=== PATIENT | female | born 1995 | race American Indian/Alaskan Native ===

== ENCOUNTER 2019-04-12 12:46 | Outpatient (CLI) | payer OTHER | END 2019-04-12 13:03 | disposition home or self-care (01) | LOC: NST 12:46 | DX: Z34.83 Encounter for supervision of other normal pregnancy, third trimester (principal) ==

== ENCOUNTER 2019-04-18 10:33 | Outpatient (CLI) | payer OTHER | END 2019-04-18 11:07 | disposition home or self-care (01) | LOC: NST 10:33 | DX: Z34.83 Encounter for supervision of other normal pregnancy, third trimester (principal) ==

== ENCOUNTER 2019-04-25 12:32 | Inpatient (IN) | payer OTHER ==
[~2019-04-25] VITALS: Ht 165.1 cm; Wt 70.3 kg
[2019-05-24] MEDS ORDERED: PRENATAL CAPLE1 EAC1 PO (14:17)
== END 2019-05-26 11:52 | disposition home or self-care (01) | DRG 806 ==
LOC: OB/GYN 05-21 10:00 → LDR 05-24 13:19 → OB/GYN 05-24 22:19
PROVIDERS: ADMIT Obstetrics & Gynecology
PROC: 10D17Z9 Manual Extraction of Products of Conception, Retained, Via Natural or Artificial Opening (ICD-10-PCS; 2019-05-24)
PROC: 3E0P7VZ Introduction of Hormone into Female Reproductive, Via Natural or Artificial Opening (ICD-10-PCS; 2019-05-24)
PROC: 3E033VJ Introduction of Other Hormone into Peripheral Vein, Percutaneous Approach (ICD-10-PCS; 2019-05-24)
PROC: 4A1HXCZ Monitoring of Products of Conception, Cardiac Rate, External Approach (ICD-10-PCS; 2019-05-24)
PROC: 10E0XZZ Delivery of Products of Conception, External Approach (ICD-10-PCS; principal; 2019-05-24 21:00)
DX: O71.4 Obstetric high vaginal laceration alone (principal); O72.2 Delayed and secondary postpartum hemorrhage; Z37.0 Single live birth; Z3A.40 40 weeks gestation of pregnancy

== ENCOUNTER 2019-05-02 09:24 | Outpatient (CLI) | payer OTHER | END 2019-05-02 09:54 | disposition home or self-care (01) | LOC: NST 09:24 | DX: Z34.83 Encounter for supervision of other normal pregnancy, third trimester (principal) ==

== ENCOUNTER 2019-05-22 11:46 | Outpatient (CLI) | payer OTHER | END 2019-05-22 13:26 | disposition home or self-care (01) | LOC: NST 11:46 | DX: Z34.83 Encounter for supervision of other normal pregnancy, third trimester (principal) ==

== ENCOUNTER 2021-09-03 13:15 | Inpatient (IN) | payer OTHER ==
[~2021-09-03] VITALS: Ht 167.6 cm; Wt 66.7 kg
[~2021-09-03 13:15] MED LIST: PRENATAL CAPLE1 EAC1 PO
[2021-09-11] MEDS ORDERED: IRON325 MG PO (09:37)
[2021-09-11] MEDS ORDERED: PRENATAL TABLE1 EAC1 PO (09:37)
== END 2021-09-13 14:06 | disposition home or self-care (01) | DRG 807 ==
LOC: LDR 09-11 07:42 → OB/GYN 09-11 07:42
PROVIDERS: ADMIT Obstetrics & Gynecology; ATTEND Obstetrics & Gynecology Maternal & Fetal Medicine
PROC: 10E0XZZ Delivery of Products of Conception, External Approach (ICD-10-PCS; principal; 2021-09-11)
PROC: 0UQG7ZZ Repair Vagina, Via Natural or Artificial Opening (ICD-10-PCS; 2021-09-11)
PROC: 4A1HXCZ Monitoring of Products of Conception, Cardiac Rate, External Approach (ICD-10-PCS; 2021-09-11)
DX: O71.4 Obstetric high vaginal laceration alone (principal); Z37.0 Single live birth; Z3A.39 39 weeks gestation of pregnancy; Z20.822 Contact with and (suspected) exposure to COVID-19

== ENCOUNTER 2024-06-23 14:15 | Inpatient (IN) | payer OTHER ==
[~2024-06-23] VITALS: Ht 162.6 cm; Wt 71.7 kg
[~2024-06-23 14:15] MED LIST changes: +IRON325 MG PO; +PRENATAL TABLE1 EAC1 PO
[2024-07-05] MEDS ORDERED: AMPICILLIN SODIUM 2,000 MG VIAL ONE (20:07)
[2024-07-05 20:15] VITALS: BP 118/71
[2024-07-05] MEDS ORDERED: AMPICILLIN SODIUM 2,000 MG VIAL IV ONE (20:15)
[2024-07-05 21:00] VITALS: BP 118/71
[2024-07-05] MEDS ORDERED: RINGERS SOLUTION,LACTATED 1,000 ML IV SCH (22:00)
[2024-07-05] MEDS ORDERED: MORPHINE SULFATE 4 MG/ML VIAL IV PRN (22:00)
[2024-07-05 23:13] VITALS: BP 104/74
[2024-07-05] MEDS ORDERED: LIDOCAINE HCL 1% 10ML VIAL ONE (23:30)
[2024-07-05] MEDS ORDERED: ERYTHROMYCIN BASE OPHT 1GM EACH TUBE OP ONE (23:30)
[2024-07-05] MEDS ORDERED: OXYTOCIN 20 UNITS/1000ML RL PIGGYBAG IV ONE (23:30)
[2024-07-05] MEDS ORDERED: CHLORHEXIDINE GLUCONATE 120 ML BOTTLE TOP ONE (23:30)
[2024-07-05 23:42] VITALS: BP 104/74
[2024-07-05 23:42] LABS: HEMATOCRIT 33.5 % (36.0-45.00); MEAN CELL VOLUME 85.5 fL (80.00-100.00); MEAN CORPUSCULAR HGB CONC 33.4 g/dl (32.0-36.0); PLATELET COUNT 242 K/uL (150-450); RED BLOOD COUNT 3.92 M/uL (4.00-6.00); RED CELL DISTRIBUTION WIDTH 16.4 % (11.5-14.5)
[2024-07-05 23:52] LABS: HEMOGLOBIN 11.2 g/dL (12.0-15.00); MEAN CORPUSCULAR HEMOGLOBIN 28.5 pg (27.00-32.0)
[2024-07-06] VITALS (10 sets, daily range): BP systolic 96–113; BP diastolic 56–76
[2024-07-06] MEDS ORDERED: AMPICILLIN SODIUM 1,000 MG VIAL IV SCH
[2024-07-06 00:02] LABS: INR 0.96; PARTIAL THROMBOPLASTIN TIME 24.8 SECONDS (22.0-34.0); PROTHROMBIN TIME 10.5 SECONDS (9.0-11.5)
[2024-07-06 00:07] LABS: ALBUMIN 2.7 gm/dL (3.4-5.0); BILIRUBIN TOTAL 0.37 mg/dL (0.3-1.2); CALCIUM 8.5 mg/dL (8.5-10.1); GFR 164.73; GLOBULINA 3.5 G/DL (2.4-3.5); POTASSIUM 3.68 mEq/L (3.5-5.1); TOTAL PROTEIN 6.2 gm/dL (6.4-8.2)
[2024-07-06 00:14] LABS: CREATININE SERUM 0.45 mg/dL (0.55-1.02)
[2024-07-06] MEDS ORDERED: CHLORHEXIDINE GLUCONATE 120 ML BOTTLE TP SCH (00:30)
[2024-07-06] MEDS ORDERED: OXYTOCIN 1,000 ML IV SCH (00:30)
[2024-07-06] MEDS ORDERED: IBUprofen 400 MG TABLET PO PRN (00:30)
[2024-07-06] MEDS ORDERED: ERYTHROMYCIN BASE OPHT 1GM EACH TUBE OP ONE (01:00)
[2024-07-06 07:24] LABS: MEAN CELL VOLUME 84.7 fL (80.00-100.00); MEAN CORPUSCULAR HGB CONC 34.5 g/dl (32.0-36.0); PLATELET COUNT 204 K/uL (150-450); RED BLOOD COUNT 3.31 M/uL (4.00-6.00); RED CELL DISTRIBUTION WIDTH 16.6 % (11.5-14.5)
[2024-07-06 07:38] LABS: HEMOGLOBIN 9.7 g/dL (12.0-15.00); MEAN CORPUSCULAR HEMOGLOBIN 29.3 pg (27.00-32.0)
[2024-07-06] MEDS ORDERED: IRON/V.C/V.B12/FOLIC A/VIT. E 1 CAPL CAPLET PO SCH (09:00)
[2024-07-07] VITALS: BP 92/57
[2024-07-07 09:20] VITALS: BP 94/63
== END 2024-07-07 18:15 | disposition home or self-care (01) | DRG 807 ==
LOC: SURH 07-05 14:15 → OB/GYN 07-05 20:09 → LDR 07-05 20:09 → OB/GYN 07-06 00:43
PROVIDERS: Obstetrics & Gynecology; ADMIT Obstetrics & Gynecology; ATTEND Obstetrics & Gynecology
PROC: 10E0XZZ Delivery of Products of Conception, External Approach (ICD-10-PCS; principal; 2024-07-05)
PROC: 0KQM0ZZ Repair Perineum Muscle, Open Approach (ICD-10-PCS; 2024-07-05)
PROC: 4A1HXCZ Monitoring of Products of Conception, Cardiac Rate, External Approach (ICD-10-PCS; 2024-07-05)
DX: O70.1 Second degree perineal laceration during delivery (principal); O99.824 Streptococcus B carrier state complicating childbirth; O69.81X0 Labor and delivery complicated by cord around neck, without compression, not applicable or unspecified; Z37.0 Single live birth; Z3A.38 38 weeks gestation of pregnancy; Z20.822 Contact with and (suspected) exposure to COVID-19

== ENCOUNTER 2024-06-25 15:03 | Emergency (ER) | payer OTHER ==
[~2024-06-25] VITALS: Ht 167.6 cm; Wt 71.2 kg
[2024-06-25] MEDS ORDERED: ACETAMINOPHEN 500 MG GEL..CAP PO ONE ×2 (18:15→18:35)
[2024-06-25] MEDS ORDERED: AMPICILLIN SODIUM/SULBACTAM NA 1,500 MG VIAL IV ONE (18:15)
== END 2024-06-25 22:08 ==
LOC: ER 16:06
DX: O26.893 Other specified pregnancy related conditions, third trimester (principal); K08.89 Other specified disorders of teeth and supporting structures; Z3A.38 38 weeks gestation of pregnancy